=== PATIENT | male | born 1980 | race Caucasian/White ===

== ENCOUNTER 2018-05-26 02:16 | Emergency (ER) | payer SELFPAY ==
[2018-05-26 02:29] VITALS: BP 156/95
[2018-05-26] MEDS ORDERED: LIDOCAINE 1% INJ-PF (10 MG/ML) 30 ML SDV INJ ONE (02:40)
--- NOTE | 2018-05-26 03:11 | RADIOLOGY REPORT (SQ) ---
EXAM DESCRIPTION: XR HAND 3 OR MORE VIEWS COMPLETED DATE/TME: 05/26/2018 02:33 CLINICAL HISTORY: 38 years Male, eval for FB COMPARISON: None. Findings: Multiple radiopaque foreign body/glass fragments measuring up to 0.6 cm each subcutaneous soft tissues of the anterior right hand at the level of the second, third, and fourth proximal phalanges. Bones, joints, and soft tissues of the RIGHT XR HAND 3 OR MORE VIEWS appear otherwise intact. IMPRESSION: Foreign bodies.
--- NOTE | 2018-05-26 04:23 | RADIOLOGY REPORT (SQ) ---
EXAM DESCRIPTION: XR HAND 3 OR MORE VIEWS COMPLETED DATE/TME: 05/26/2018 03:45 CLINICAL HISTORY: 38 years, Male, re-eval for FB COMPARISON: None. NUMBER OF VIEWS: 3 VIEWS LIMITATIONS: None. Findings: Multiple radiopaque foreign body/glass fragments measuring up to 0.6 cm each subcutaneous soft tissues of the anterior right hand at the level of the second, third, and fourth proximal phalanges. Bones, joints, and soft tissues of the RIGHT XR HAND 3 OR MORE VIEWS appear otherwise intact. IMPRESSION: Foreign bodies. Swelling. No significant change.
[2018-05-26] MEDS ORDERED: DIPH/PERTUSS(ACELL)/TETANUS VAC/PF 0.5 ML SYR (>=10YO) IM ONE (04:31)
--- NOTE | 2018-05-26 04:37 | ER Document Report ---
ED Wound - General Chief Complaint: Laceration Stated Complaint: HAND LACERATION Time Seen by Provider: 05/26/18 02:33 Mode of Arrival: Ambulatory Information source: Patient Notes: Patient is a 38-year-old male who presents with multiple lacerations to his right hand. Patient reports he was grabbing a hold of a glass light fixture when the light fixture broke. There is active bleeding noted upon his arrival. Patient is deaf, he states through translation system he is unsure about a tetanus shot. TRAVEL OUTSIDE OF THE [place] IN LAST 30 DAYS: No - Related Data Allergies/Adverse Reactions: Sulfa (Sulfonamide Antibiotics) Allergy (Verified 05/26/18 02:25) Past Medical History - General Information source: Patient - Social History Smoking Status: Never Smoker Family History: Reviewed & Not Pertinent Patient has suicidal ideation: No Patient has homicidal ideation: No - Medical History Medical History: Other - deaf Renal/ Medical History: Denies: Hx Peritoneal Dialysis Surgical Hx: Negative - Immunizations Hx Diphtheria, Pertussis, Tetanus Vaccination: No Review of Systems - Review of Systems Skin: See HPI -: Yes All other systems reviewed and negative Physical Exam - Vital signs Vitals: Temp Pulse Resp BP Pulse Ox 97.9 F 111 H 20 156/95 H 96 05/26/18 02:28 05/26/18 02:28 05/26/18 02:28 05/26/18 02:28 05/26/18 02:28 - Notes Notes: PHYSICAL EXAMINATION: GENERAL: Well-appearing, well-nourished and in no acute distress. HEAD: Atraumatic, normocephalic. EYES: Pupils equal round extraocular movements intact, conjunctiva are normal. ENT: Nares patent NECK: Normal range of motion LUNGS: No respiratory distress Musculoskeletal: Normal range of motion NEUROLOGICAL: Normal speech, normal gait. PSYCH: Normal mood, normal affect. SKIN: Warm, Dry, normal turgor, no rashes or lesions noted. 4 cm laceration to palmar surface of right hand as well as 2 cm laceration to palmar surface of right hand, there does appear to be some tendon involvement to the larger of the 2 lacerations near digit #2. Cap refill less than 3 seconds, normal sensation distal to injury however there is decreased movement to digit #2. Course - Re-evaluation Re-evalutation: Laceration to right hand with radiopaque foreign bodies present. I did irrigate the wound with 2 L of normal saline. X-ray was read performed and shows remained foreign bodies on the x-ray. I will close the wound with sutures and refer the patient to orthopedics due to the possible tendon involvement. - Vital Signs Vital signs: Temp Pulse Resp BP Pulse Ox 97.9 F 111 H 20 156/95 H 96 05/26/18 02:28 05/26/18 02:28 05/26/18 02:28 05/26/18 02:28 05/26/18 02:28 Procedures - Laceration/Wound Repair Right hand #1 Wound length (cm): 4 Wound's Depth, Shape: Irregular Laceration pre-procedure: Sterile PPE donned Anesthetic type: 1% Lidocaine Wound explored: Foreign body removed Wound Repaired With: Sutures Suture Size/Type: 4:0 Number of Sutures: 8 Right hand #2 Wound length (cm): 4 Wound's Depth, Shape: Superficial, Irregular Laceration pre-procedure: Sterile PPE donned Anesthetic type: 1% Lidocaine Wound Repaired With: Sutures Suture Size/Type: 4:0 Number of Sutures: 4 Discharge - Discharge Clinical Impression: Laceration of hand with foreign body Qualifiers: Encounter type: initial encounter Laterality: right Qualified Code(s): S61.421A - Laceration with foreign body of right hand, initial encounter Condition: Stable Disposition: HOME, SELF-CARE Additional Instructions: Laceration Care Your laceration has been sutured to keep the skin edges aligned during healing. The time of suture removal depends on the nature and location of your cut. Please follow the care instructions the doctor has outlined for you and return for further care, according to the schedule you've been given. Keep the wound and dressing clean. Unless you were told otherwise, you may shower daily, blotting the wound dry with a clean, unused towel. At other times, If the dressing gets wet or blood soaked, remove it and blot the wound dry, then reapply a new dressing. Unless you were instructed otherwise, dressings should be changed at least daily. If any signs of infection occur (swelling, redness, increasing tenderness, red streaks, tender lumps in the armpit or groin above the laceration, or fever) , see the doctor immediately. Tetanus Immunization Given You have been given an immunization against tetanus. Please record this in your records. In general, a booster is needed only once every 10 years. The tetanus shot protects against tetanus or "lockjaw," which is a complication of certain wound infections (the tetanus shot cannot protect against the actual infection). The immunization site may become warm and red due to local reaction. If this occurs, apply warm compresses and take aspirin or ibuprofen to reduce inflammation and discomfort. Return for evaluation if the reaction becomes severe. Please follow-up with orthopedics, call them this morning to get an appointment scheduled. Let them know you are seen in the emergency department for a deep laceration with retained foreign body and possible tendon involvement. Take the antibiotics as prescribed, complete the entire course to prevent infection. Apply bacitracin twice daily and keep clean and dry as outlined above. Please return to the emergency department or your primary care provider in 8-10 days for suture removal. Please return earlier if you develop any signs of infection such as increased redness, swelling, foul-smelling drainage or fever. Prescriptions: Cephalexin [Cephalexin 500 MG Capsule] 1 cap PO QID #28 cap Referrals: HERMINIO SEALS DO [ACTIVE STAFF] - Follow up as needed
[2018-05-26] MEDS ORDERED: HYDROCODONE/ACETAMINOPHEN 5-325 MG (6 TAB/ER DISP) PO PRN (04:39)
== END 2018-05-26 04:59 | disposition home or self-care (01) ==
LOC: ER 02:16
PROC: 0HQFXZZ Repair Right Hand Skin, External Approach (ICD-10-PCS; principal; 2018-05-26)
DX: S61.421A Laceration with foreign body of right hand, initial encounter (principal); W26.8XXA Contact with other sharp object(s), not elsewhere classified, initial encounter; Y93.89 Activity, other specified; Y92.9 Unspecified place or not applicable; Y99.9 Unspecified external cause status; Z88.2 Allergy status to sulfonamides; Z23 Encounter for immunization
CPT/HCPCS: 99283; 73130; 90715; 12004; J3490

== ENCOUNTER 2018-06-03 12:53 | Day surgery (SDC) | payer MEDICAID, MEDICARE ==
[2018-05-31 09:38] LABS: HEMATOCRIT 44.1 % (37.9-51.0); HEMOGLOBIN 15.5 g/dL (13.5-17.0); MEAN CORPUSCULAR HEMOGLOBIN 31.6 pg (27.0-33.4); MEAN CORPUSCULAR HGB CONC 35.2 g/dL (32.0-36.0); MEAN CORPUSCULAR VOLUME 90 fl (80-97); PLATELET COUNT 221 10^3/uL (150-450); RED BLOOD COUNT 4.92 10^6/uL (4.35-5.55); RED CELL DISTRIBUTION WIDTH 13.8 % (11.5-14.0); WHITE BLOOD COUNT 8.7 10^3/uL (4.0-10.5)
[2018-05-31 09:53] LABS: APPEARANCE,URINE CLEAR; BILIRUBIN,URINE NEGATIVE (NEGATIVE); COLOR,URINE YELLOW; GLUCOSE, URINE 50 mg/dL (NEGATIVE); KETONES,URINE NEGATIVE (NEGATIVE); LEUKOCYTE ESTERASE,URINE NEGATIVE (NEGATIVE); NITRITE,URINE NEGATIVE (NEGATIVE); PROTEIN,URINE NEGATIVE (NEGATIVE); UROBILINOGEN,URINE NEGATIVE mg/dL (<2.0)
[2018-05-31 10:00] LABS: ANION GAP 13 (5-19); BLOOD UREA NITROGEN 11 mg/dL (7-20); CALCIUM 9.7 mg/dL (8.4-10.2); CARBON DIOXIDE 29 mmol/L (22-30); CHLORIDE 102 mmol/L (98-107); GLUCOSE 117 mg/dL (75-110); POTASSIUM 4.4 mmol/L (3.6-5.0); SODIUM 143.9 mmol/L (137-145)
--- NOTE | 2018-05-31 10:33 | RADIOLOGY REPORT (SQ) ---
EXAM DESCRIPTION: CHEST PA/LATERAL COMPLETED DATE/TIME: 05/31/2018 9:26 am REASON FOR STUDY: PRE-OP COMPARISON: None. EXAM PARAMETERS: NUMBER OF VIEWS: two views TECHNIQUE: Digital Frontal and Lateral radiographic views of the chest acquired. RADIATION DOSE: NA LIMITATIONS: none FINDINGS: LUNGS AND PLEURA: No opacities, masses or pneumothorax. No pleural effusion. MEDIASTINUM AND HILAR STRUCTURES: No masses or contour abnormalities. HEART AND VASCULAR STRUCTURES: Heart normal size. No evidence for failure. BONES: No acute findings. HARDWARE: None in the chest. OTHER: No other significant finding. IMPRESSION: NO SIGNIFICANT RADIOGRAPHIC FINDING IN THE CHEST. TECHNICAL DOCUMENTATION: JOB ID: [id number] [employer]- All Rights Reserved Reading location - IP/workstation name: [email or web address]
--- NOTE | 2018-05-31 10:40 | EKG REPORT ---
SEVERITY:- NORMAL ECG - SINUS RHYTHM : Confirmed by: Jayleen Hickey MD 31-May-2018 10:39:54
[~2018-06-03 12:53] MED LIST: CEFAZOLIN 2 GM/D5W RTU 2 GM/50 ML RTUPB IV PRN; LACTATED RINGERS 1000 ML IV PRN; LIDOCAINE 0.5% INJ-PF (5 MG/ML) 50 ML SDV SUBCUT PRN
[2018-06-03] MEDS ORDERED: CEFAZOLIN 2 GM/D5W RTU 2 GM/50 ML RTUPB IV ONE (13:04)
[2018-06-03] MEDS ORDERED: BUPIVACAINE HCL 0.5 % INJ/PF 30 ML SDV ONE (13:10)
[2018-06-03] MEDS ORDERED: LIDOCAINE 1% INJ-PF (10 MG/ML) 30 ML SDV ONE (13:10)
[2018-06-03] MEDS ORDERED: LIDOCAINE 1%/EPINEPHRINE INJ 20 ML VIAL ONE ×2 (14:51→16:55)
[2018-06-03] MEDS ORDERED: PROPOFOL INJ 200 MG/20 ML VIAL IV ONE ×3 (15:17→16:23)
[2018-06-03] MEDS ORDERED: MIDAZOLAM 2 MG/2 ML INJ ONE ×2 (15:17→16:23)
[2018-06-03] MEDS ORDERED: HYDROMORPHONE HCL INJ/PF 2 MG/ML AMPULE ONE (15:17)
[2018-06-03] MEDS ORDERED: ACETAMINOPHEN 1,000 MG/100 ML RTUPB IV ONE (15:17)
[2018-06-03] MEDS ORDERED: PROMETHAZINE HCL INJ 25 MG/1 ML VIAL IV PRN ×2 (16:32)
[2018-06-03] MEDS ORDERED: DIPHENHYDRAMINE HCL 50 MG/ML VIAL IV PRN (16:32)
[2018-06-03] MEDS ORDERED: FENTANYL CITRATE INJ/PF 100 MCG/2 ML AMPUL IV PRN ×3 (16:32)
[2018-06-03] MEDS ORDERED: ONDANSETRON HCL INJ/PF 4 MG/2 ML SDV IV PRN (16:32)
[2018-06-03] MEDS ORDERED: OXYCODONE-ACETAMINOPHEN 5-325 MG TABLET PO PRN ×3 (16:32→18:08)
[2018-06-03] MEDS ORDERED: MEPERIDINE HCL/PF INJ 25 MG/1 ML DISP.SYRIN IV PRN (16:32)
--- NOTE | 2018-06-03 17:54 | Discharge Summary ---
Discharge Summary (SDC) - Discharge Final Diagnosis: Flexor tendon laceration right index/ring finger Date of Surgery: 06/03/18 Discharge Date: 06/03/18 Condition: Good Treatment or Instructions: Schedule Follow Up w/ Dr. Laureano Rasmussen @ [facility] to be seen in 10-14 days or as scheduled [place]: [place]: [place]: Ice and elevate Keep splint clean/dry/intact. If your fingers become numb please unwrap the Chadd wrap but leave the splint in place, if the sensation does not return within 30 minutes please return to the emergency department. Please use ibuprofen (Motrin or Advil) 600-800 mg every 8 hours as needed for pain or fever DO NOT TAKE w/ TORADOL may use once TORADOL complete. You may also use acetaminophen (Tylenol) 1000 mg every 4-6 hours as needed for pain or fever. Please be aware that many medications contain acetaminophen, do not exceed a total of 1000 mg of acetaminophen every 6 hours. If ibuprofen and acetaminophen are not sufficient for your pain you may take the Percocet/Downey. Please be aware that the Percocet/Downey does contain Tylenol. Stool softener of choice when on pain medication. Prescriptions: Oxycodone HCl/Acetaminophen [Percocet 7.5-325 mg Tablet] 1 each PO Q6 PRN #25 tablet PRN Reason: Discharge Diet: As Tolerated Respiratory Treatments at Home: Deep Breathing/Coughing Discharge Activity: No Lifting Over 10 Pounds, No Lifting/Push/Pulling Report the Following to Your Physician Immediately: Fever over 101 Degrees, Unusual Bleeding, Redness, Swelling, Warmth, Increased Soreness
--- NOTE | 2018-06-03 18:04 | Operative Report ---
Operative Report DATE OF SURGERY: 06/03/18 PREOPERATIVE DIAGNOSIS: Laceration right hand with flexor tendon involvement POSTOPERATIVE DIAGNOSIS: Right hand laceration with FDS/FDP laceration ring finger, 75% FDP laceration index finger 50% FDS laceration index finger OPERATION: 1. Repair right ring finger FDP zone II. 2. Repair of right index FDP zone II neuro lysis. 3. Common digital nerve second/third webspace. 4. Removal foreign body index finger SURGEON: HERMINIO SEALS ANESTHESIA: LMAC COMPLICATIONS: None ESTIMATED BLOOD LOSS: Minimal PROCEDURE: Indication for above procedure: 38-year-old male who sustained a laceration to his right hand when he was [place] the [place]. The laceration occurred when he broke a glass onto his hand. He had notable bleeding but the inability to bend his ring finger. He was seen at the emergency room where the area was irrigated and loosely closed. He was sent to my office at which point we discussed treatment options including operative versus nonoperative intervention. Risks and benefits were explained patient verbalized understanding consented for the procedure. All communication was obtained via an production manager. Procedure In Detail: Patient was seen and evaluated in the preoperative holding area. The RIGHT upper extremity was initialized and marked. Patient received 2g of Ancef IV for bacterial prophylaxis. While in the preoperative holding area the hand was prepped with alcohol and 10 cc of 1% lidocaine with epinephrine was injected along the ring finger. Patient was taken back to the operative room where transferred to the operative table and placed under MAC anesthesia. Once they were adequately anesthetized an additional 6 cc was placed in the ring finger 2 cc at the MP joint, PIP and DIP joints of 1% lidocaine with epinephrine. A surgical team debriefing was performed ensuring all instrumentation was available, the surgical procedure was discussed with possible concerns reviewed. The upper extremity was prepped with chlorhexidine and alcohol and draped in a sterile fashion. A timeout was done identifying correct patient, procedure and extremity everyone in attendance agree with this and verbalized no concerns. Patient's skin incision was opened. Along the ring finger was extended proximally and distally with a Marilyn's extension. The neurovascular bundle of the third webspace was identified and remained intact. Complete of the FDP and FDS at the level of zone II. The A1 melvin was vented to retrieve the FDP and FDS. The FDP was advanced distally under the remaining A1 melvin and A2 melvin. The proximal portion of the A2 melvin remained intact. Once the tendon was advanced to the cut edge of the distal tendon it was held with a 22- gauge needle. The A4 melvin remained intact. I then attempted to advance the FDS but given the tightness within the second melvin I felt this was going to cause too much force for flexion and increased risk of adhesion thus the FDS was not repaired, portion of the FDS was excised. The FDP was reapproximated with a M-Washburn suture using 4-0 fiber loop and additional past with 4-oh fiber loop was utilized as well providing a 6 stranded repair. During repair 1 cm sections of the tendon were obtained. A running 6-0 Prolene epitendinous suture was then utilized. Patient was awoken from anesthesia and was able to make a full fist and full extension without evidence of catching or locking. There is no evidence of tendon gapping on direct visualization. Additional 6 cc of 1% lidocaine with epinephrine was injected at the base of the index finger and 5 cc of 1% lidocaine without epinephrine was injected along the middle finger. Exploration of the middle finger demonstrated no evidence of tendon disruption or neurovascular disruption of the second web space. Exploration of the index finger demonstrated small ceramic fragments likely from the cut glass. Multiple fragments were removed from the base of the index finger. Exploration demonstrated no evidence of further foreign body. The wound was copiously irrigated with normal saline. The index finger demonstrated 50% FDS laceration at the level of A1 melvin and 75% laceration of the FDP at the level of the A1 melvin consistent with a zone II flexor tendon laceration. A portion of the FDP was then reapproximated with a 5-0 Prolene utilizing a modified Ferro an additional [id number] suture and thus a 4 stranded repair. With flexion and extension once patient was awakened from LMAC there was no evidence of catching or locking. The radial digital nerve of the index finger remained intact without disruption. Any peripheral bleeding was controlled with bipolar cautery into the wounds were dry. Wound was copiously irrigated with normal saline. Skin incisions were closed with interrupted 4-0 nylon suture. Wound was dressed Xeroform 4 x 4 's and patient was placed in a dorsal blocking splint with the MP joints at 65 degrees of flexion and the wrist at 25 degrees of extension. Sponge counts, instrument counts, needle counts counts were correct. Patient was then awoken from anesthesia. Transferred from the operating room table to the operating room stretcher. There was no intraoperative complications patient tolerated procedure well stable to PACU. Postoperative plan: Patient will follow-up in the office in 2 weeks for suture removal. We will set him up for occupational therapy 7 days postoperatively as per [facility]'s flexor tendon protocol
[2018-06-03] MEDS ORDERED: MORPHINE SULFATE 10 MG/ML INJ IV PRN (18:08)
[2018-06-03 19:26] VITALS: BP 132/81
== END 2018-06-03 19:20 | disposition home or self-care (01) ==
LOC: OROUT 12:53
PROVIDERS: ATTEND Orthopaedic Surgery
DX: S66.124A Laceration of flexor muscle, fascia and tendon of right ring finger at wrist and hand level, initial encounter (principal); S66.120A Laceration of flexor muscle, fascia and tendon of right index finger at wrist and hand level, initial encounter; S61.214A Laceration without foreign body of right ring finger without damage to nail, initial encounter; S61.220A Laceration with foreign body of right index finger without damage to nail, initial encounter; W25.XXXA Contact with sharp glass, initial encounter; W45.8XXA Other foreign body or object entering through skin, initial encounter; M79.641 Pain in right hand; Z88.2 Allergy status to sulfonamides; Z01.818 Encounter for other preprocedural examination
CPT/HCPCS: 93005; 36415; 85027; 80048; 81001; 71046; 93010; 10120; 26356 ×2; J2250; J3490 ×2; J1170; J2704; J0690; J0131; 1810

== ENCOUNTER 2018-12-06 06:06 | Day surgery (SDC) | payer MEDICAID ==
[2018-11-30 10:20] LABS: HEMATOCRIT 45.4 % (37.9-51.0); HEMOGLOBIN 15.8 g/dL (13.5-17.0); MEAN CORPUSCULAR HEMOGLOBIN 30.6 pg (27.0-33.4); MEAN CORPUSCULAR HGB CONC 34.8 g/dL (32.0-36.0); MEAN CORPUSCULAR VOLUME 88 fl (80-97); RED BLOOD COUNT 5.16 10^6/uL (4.35-5.55); RED CELL DISTRIBUTION WIDTH 13.6 % (11.5-14.0); WHITE BLOOD COUNT 7.9 10^3/uL (4.0-10.5)
[2018-11-30 10:21] LABS: ABSOLUTE BASOPHILS # (AUTO) 0.1 10^3/uL (0.0-0.2); ABSOLUTE LYMPHOCYTES (AUTO) 1.9 10^3/uL (0.5-4.7); ABSOLUTE MONOCYTES (AUTO) 0.6 10^3/uL (0.1-1.4); ABSOLUTE NEUT (AUTO) 5.4 10^3/uL (1.7-8.2); BASOPHILS % (AUTO) 0.8 % (0-2); EOSINOPHILS % (AUTO) 0.6 % (0-6); LYMPHOCYTES % (AUTO) 23.6 % (13-45); PLATELET COUNT 222 10^3/uL (150-450); TOTAL CELLS COUNTED % (AUTO) 100 %
[2018-11-30 10:29] LABS: APPEARANCE,URINE SLIGHTLY-CLOUDY; BILIRUBIN,URINE NEGATIVE (NEGATIVE); COLOR,URINE YELLOW; GLUCOSE, URINE NEGATIVE (NEGATIVE); KETONES,URINE NEGATIVE (NEGATIVE); LEUKOCYTE ESTERASE,URINE NEGATIVE (NEGATIVE); NITRITE,URINE NEGATIVE (NEGATIVE); PROTEIN,URINE NEGATIVE (NEGATIVE); URINE SPECIFIC GRAVITY 1.029; UROBILINOGEN,URINE NEGATIVE mg/dL (<2.0)
[2018-11-30 10:48] LABS: ANION GAP 12 (5-19); BLOOD UREA NITROGEN 9 mg/dL (7-20); CALCIUM 9.9 mg/dL (8.4-10.2); CARBON DIOXIDE 27 mmol/L (22-30); CHLORIDE 101 mmol/L (98-107); GLUCOSE 123 mg/dL (75-110); POTASSIUM 3.9 mmol/L (3.6-5.0); SODIUM 140.4 mmol/L (137-145)
--- NOTE | 2018-11-30 23:13 | EKG REPORT ---
SEVERITY:- BORDERLINE ECG - SINUS RHYTHM BORDERLINE T WAVE ABNORMALITIES : Confirmed by: Fannie Fisher 30-Nov-2018 23:11:58
[2018-12-06] MEDS ORDERED: CEFAZOLIN 2 GM/D5W RTU 2 GM/50 ML RTUPB IV ONE (06:12)
[2018-12-06] MEDS ORDERED: PROPOFOL INJ 200 MG/20 ML VIAL IV ONE ×2 (06:44→08:26)
[2018-12-06] MEDS ORDERED: DEXAMETHASONE SOD PHOSPHATE INJ 4 MG/1 ML VIAL ONE (06:44)
[2018-12-06] MEDS ORDERED: MIDAZOLAM 2 MG/2 ML INJ ONE (06:44)
[2018-12-06] MEDS ORDERED: FENTANYL CITRATE INJ/PF 100 MCG/2 ML AMPUL ONE (06:44)
[2018-12-06] MEDS ORDERED: ONDANSETRON HCL INJ/PF 4 MG/2 ML SDV ONE (06:44)
[2018-12-06] MEDS ORDERED: MORPHINE SULFATE 10 MG/ML INJ ONE (06:44)
[2018-12-06] MEDS ORDERED: BUPIVACAINE HCL 0.5 % INJ/PF 30 ML SDV ONE (07:51)
[2018-12-06] MEDS ORDERED: FENTANYL CITRATE INJ/PF 100 MCG/2 ML AMPUL IV PRN ×3 (08:34)
[2018-12-06] MEDS ORDERED: DIPHENHYDRAMINE HCL 50 MG/ML VIAL IV PRN (08:34)
[2018-12-06] MEDS ORDERED: PROMETHAZINE HCL INJ 25 MG/1 ML VIAL IV PRN ×2 (08:34)
[2018-12-06] MEDS ORDERED: MORPHINE SULFATE 10 MG/ML INJ IV PRN (08:34)
[2018-12-06] MEDS ORDERED: MEPERIDINE HCL/PF INJ 25 MG/1 ML DISP.SYRIN IV PRN (08:34)
[2018-12-06] MEDS ORDERED: OXYCODONE-ACETAMINOPHEN 5-325 MG TABLET PO PRN (10:29)
[2018-12-06] MEDS ORDERED: ONDANSETRON HCL INJ/PF 4 MG/2 ML SDV IV PRN (10:29)
[2018-12-06] MEDS ORDERED: HYDROMORPHONE HCL INJ/PF 2 MG/ML AMPULE IV PRN (10:29)
--- NOTE | 2018-12-06 10:30 | Discharge Summary ---
Discharge Summary (SDC) - Discharge Final Diagnosis: Right ring finger PIP joint capsulotomy with flexor tenolysis Date of Surgery: 12/06/18 Discharge Date: 12/06/18 Condition: Good Treatment or Instructions: Schedule Follow Up w/ Dr. Laureano Rasmussen @ [facility] to be seen in 10-14 days or as scheduled [place]: [place]: [place]: May remove dressing on postop day #3, keep incision covered and dry. Ice and elevate May begin finger range of motion attempting to make full fist. Stool softener of choice when on pain medication. USE OF [id number] IBUPROFEN: Ibuprofen (Advil, Nuprin, Medipren, Motrin IB) is a medication for fever and pain control. In addition, it has anti- inflammatory effects which may be beneficial, especially in the treatment of injuries. It's best to take ibuprofen with food. Persons with ulcer disease or allergy to aspirin should notify their physician of this before taking ibuprofen. Ibuprofen can be given every four to six hours, for a total of four doses daily. Age Pain or fever dose Antiinflammatory dose 6-8 yr 200 mg (1 tab) 200 mg (1 tab) 9-11 yr 200 mg (1 tab) 200-400 mg (1-2 tab) 11-14 yr 200-400 mg (1-2 tab) 400 mg (2 tab) 15-adult 400 mg (2 tab) 600 mg (3 tab) ORAL NARCOTIC MEDICATION: You have been given a prescription for pain control. This medication is a narcotic. It's best taken with food, as nausea can result if taken on an empty stomach. Don't operate machinery or drive within six hours of taking this medication. Do not combine this medicine with alcohol, or with any medication which can cause sedation (such as cold tablets or sleeping pills) unless you get permission from the physician. Narcotics tend to cause constipation. If possible, drink plenty of fluids and eat a diet high in fiber and fruits. Please be aware that prescription narcotics also have the potential for abuse. People become addicted to these medications because of the general sense of wellbeing that they induce. This feeling along with a significant reduction in tension, anxiety, and aggression provides a stimulating seductive quality to these drugs. Once your pain is under control, we encourage you to discard your unused narcotics. Prescriptions: Oxycodone HCl/Acetaminophen [Percocet 5-325 mg Tablet] 1 tab PO Q6 PRN #25 tab PRN Reason: Discharge Diet: As Tolerated Respiratory Treatments at Home: Deep Breathing/Coughing Discharge Activity: No Lifting Over 10 Pounds, No Lifting/Push/Pulling Report the Following to Your Physician Immediately: Fever over 101 Degrees, Unusual Bleeding, Redness, Swelling, Warmth, Increased Soreness
--- NOTE | 2018-12-06 10:39 | Operative Report ---
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 Patient underwent flexor tendon repair unfortunately he developed significant contracture and flexor adhesions postoperatively. Despite extensive occupational therapy patient's PIP joint contracture persisted and worsened. At that point decision was made to proceed with operative intervention which included PIP joint capsulectomy with flexor tenolysis possible Shoaib kieran placement. Risks and benefits of the surgical procedure were explained to the patient via an interpreter for the deaf patient verbalized understanding consented for procedure. Procedure In Detail: Patient was seen and evaluated in the preoperative holding area. The RIGHT upper extremity was initialized and marked. Patient received 2g of Ancef IV for bacterial prophylaxis. Patient was taken back to the operative room where transferred to the operative table and placed under general anesthesia. Once they were adequately anesthetized a nonsterile tourniquet was placed on the upper extremity. A surgical team debriefing was performed ensuring all instrumentation was available, the surgical procedure was discussed with possible concerns reviewed. The upper extremity was prepped with chlorhexidine and alcohol and draped in a sterile fashion. A timeout was done identifying correct patient, procedure and extremity everyone in attendance agree with this and verbalized no concerns. The extremity was exsanguinated the tourniquet was inflated to 250 mmHg. Previous skin incision was utilized and extended from the A1 melvin and distally along the PIP joint. Meticulous dissection was performed proximally identifying the radial and ulnar neurovascular bundle. Significant scarring of the A1 melvin was identified at this level. Significant dense occurred between the flexor tendon and overlying skin. The dense scar was then excised. Skin flaps were established distally and retracted. Significant scarring of Hocking's ligament was identified with adhesions to the melvin system. The radial and ulnar neurovascular bundle was followed distally protected. The flexor tendon remained intact however significant adhesions to the A2 melvin was then identified. Sharp dissection was performed freeing the flexor tendon between the A4 and A2 pulleys. To adequately mobilize the tendon in this region. Once the tendon was adequately mobilized there was significant scarring of the tendon to the underlying volar plate. The adhesions between the flexor tendon and volar plate was then released. The volar plate was excised in the accessory collateral ligaments were released. After the PIP joint was released it was easily manipulated to full extension. Tenolysis of the FDS and FDP was then performed proximally and distally. The A4 melvin and a portion of the A2 melvin remained intact. Neuro lysis was performed to the radial and ulnar nerves bundle distal to the PIP joint and retracted while exposure of the DIP joint was performed. Insertion of the FDP was identified. The volar plate of the DIP joint was then released to obtain full extension of the DIP/PIP joints. After release of the DIP joint patient had full DIP and PIP passive extension. Tenolysis was once again performed between the melvin system and the flexor tendon proximally and distally. Also performed between the flexor tendon and underlying proximal distal phalanx. At completion the flexor tendon was able to be pulled proximally to bring the digit into full flexion. At completion patient had full passive DIP/PIP joint motion with the wrist in neutral position. Tourniquet was then deflated. Compression was held for 2 minutes. There is no evidence of significant bleeding. Mild venous bleeding proximally which was controlled with bipolar cautery until the wound was dry. Skin incision was then closed with interrupted 4-0 nylon suture. At completion of closure patient continued to have decreased blood flow to the distal tip and thus the sutures were removed. After 5 minutes of waiting flow improved to the distal digit with normal skin turgor and capillary refill. Wound was once again copiously irrigated with normal saline. Skin was closed with interrupted 4-0 nylon suture. Patient placed in Xeroform 4 x 4's and a soft dressing. 30 cc of 0.5% bupivacaine was injected into the index middle and ring finger. Sponge counts, instrument counts, needle counts were correct. Patient was then awoken from anesthesia. Transferred from the operating room table to the operating room stretcher. There was no intraoperative complications patient tolerated procedure well stable to PACU. Postoperative plan: Patient will follow in the office in 2 weeks for recheck. We will begin physical therapy immediately. Patient will require static splitting of the PIP and DIP joints at night to maintain extension. We will continue active flexion/extension. Patient is to avoid any heavy lifting due to risk of rerupture.
[2018-12-06 14:56] VITALS: BP 148/95
== END 2018-12-06 12:20 | disposition home or self-care (01) ==
LOC: OROUT 06:06
PROVIDERS: ATTEND Orthopaedic Surgery
DX: S66.125A Laceration of flexor muscle, fascia and tendon of left ring finger at wrist and hand level, initial encounter (principal); X58.XXXA Exposure to other specified factors, initial encounter; M65.841 Other synovitis and tenosynovitis, right hand; M24.549 Contracture, unspecified hand; Z88.2 Allergy status to sulfonamides
CPT/HCPCS: 93005; 36415; 85025; 80048; 81001; 93010; 26525; 26440; J2250; J3490; J1100; J3010; J2270; J2405; J2704; J0690; 1810